=== PATIENT | male | born 1940 | race Caucasian/White ===

== ENCOUNTER 2017-10-08 08:48 | Day surgery (SDC) | payer MEDICARE, OTHER ==
[~2017-10-08 08:48] MED LIST: Lactated Ringers 1,000 ML IV SCH; Sodium Chloride 0.9% 10 ML Syringe FLUSH PRN
[2017-10-08] MEDS ORDERED: Propofol 200 MG/20 ML SDV IV ONE (10:40)
[2017-10-08] MEDS ORDERED: Bupivacaine 0.5% 30 ML SDV INJECT ONE (10:57)
[2017-10-08] MEDS ORDERED: Lidocaine 1% with EPINEPHrine 1:100,000 20 ML MDV INJECT ONE (10:57)
--- NOTE | 2017-10-08 11:47 | PCM.OPNOTE ---
- General Post-Op/Procedure Note Date of Surgery/Procedure: 10/08/17 Operative Procedure(s): excisional bx of scalp lesion pot of right ear. Findings: 3 cm lesion 5 mm margins Pre Op Diagnosis: scalp lesion Post-Op Diagnosis: Same Anesthesia Technique: Local (23 ml 15 lido with epi/0.5% buvipicaine), MAC Primary Surgeon: David David Anesthesia Provider: Ginger Ortiz Pathology: skin lesion EBL in mLs: 5 Complications: None Condition: Good Free Text/Narrative:: see dictation
--- NOTE | 2017-10-08 18:13 | OR ---
DATE OF OPERATION: 10/08/2017 SURGEON: David David MD PROCEDURE PERFORMED: Excisional biopsy of scalp lesion. PREOPERATIVE DIAGNOSIS: 3 cm scalp lesion posterior to the right ear. INDICATIONS FOR PROCEDURE: This is a 77-year-old white male who has had a history of a long standing scalp lesion and it has gotten progressively larger and has a crater-like appearance and is roughly 3 cm in diameter. Given the size of the lesion, he was offered and accepted excisional biopsy here in the operating room. DESCRIPTION OF PROCEDURE: After an excellent IV sedation was administered, the patient was positioned on his left side with a roll under his left axilla, arm was then in an arm sling or an arm support and straps were placed across his chest, abdomen, and pelvis. The area which had been shaved in the preop area was then prepped and draped in the usual sterile manner. A ruler was then used to trey out 0.5 cm diameter around this 3 cm lesion and as we planned a rhomboid flap closure, 4 cm was measured roughly inferiorly and then a 60-degree angle to the medial aspect with an additional 4 cm was also measured down. This area was then infiltrated with our local mixture. A circular incision was carried down excising the lesion and this was taken down to the underlying scalp fascia. Anterior and posterior margins were marked with a suture. The incision was then carried out through the planned flap edges. A combination of blunt and electrocautery dissection was carried out to raise our flap and raise it up. Some bleeding was encountered at the base and this was controlled with a figure- of-eight 3-0 Vicryl as well as electrocautery. The flap was rotated to the wound bed and straight line of the incision was then closed in two layers with 0 Vicryl in the subcu tissue and then bria. The flap edges were then trimmed and the remainder of the circular defect was closed by stapling the skin to the edges of circular wound. The corners were cut out to allow better tissue apposition. The corner was closed with several interrupted 3-0 nylon as well bria. Bulky dressing was applied. The patient was taken to recovery room in good condition. /[id number] /MODL
== END 2017-10-08 12:54 | disposition home or self-care (01) ==
LOC: FB.SDS 08:48
PROVIDERS: ATTEND Surgery
DX: C44.41 Basal cell carcinoma of skin of scalp and neck (principal); I10 Essential (primary) hypertension; E78.5 Hyperlipidemia, unspecified; E11.40 Type 2 diabetes mellitus with diabetic neuropathy, unspecified; G47.33 Obstructive sleep apnea (adult) (pediatric); F41.8 Other specified anxiety disorders; Z88.8 Allergy status to other drugs, medicaments and biological substances; Z79.4 Long term (current) use of insulin; Z79.899 Other long term (current) drug therapy; Z79.82 Long term (current) use of aspirin
CPT/HCPCS: 00164; 11624; 12032; 82962; 88305; J2704; J7120